=== PATIENT | male | born 1995 | race African-American/Black ===

== ENCOUNTER 2021-09-15 22:36 | Emergency (ER) | payer OTHER ==
[2021-09-15 22:45] VITALS: BP 111/77; PULSE 81; TEMP 98.1; BMI 28.2
[2021-09-15] MEDS ORDERED: LIDOCAINE 5% TOPICAL PATCH TP ONE (23:37)
[2021-09-15] MEDS ORDERED: ACETAMINOPHEN 500 MG TABLET (FP) PO ONE (23:37)
[2021-09-16] MEDS ORDERED: morphine CARPU-JECT 2 MG/1 ML DISP.SYRIN IVPUSH ONE ×2 (00:10→00:11)
[2021-09-16] MEDS ORDERED: ACETAMINOPHEN 325 MG TABLET (FP) ONE (00:52)
[2021-09-16] MEDS ORDERED: LIDOCAINE 5% TOPICAL PATCH ONE (00:52)
[2021-09-16 01:18] LABS: BASO % 1.1 % (0-2.0); EOS % 1.6 % (0-4.5); HEMATOCRIT 42.9 % (35.4-49); HEMOGLOBIN 14.7 GM/dL (11.7-16.9); LYMPH % 40.9 % (8-40); MCH 30.9 pg (25.7-33.7); MCHC 34.2 g/dl (32.0-35.9); MEAN CELL VOLUME 90.3 fl (80-96); MEAN PLT VOLUME 9.6 fl (7.5-11.1); MONO % 7.3 % (3.8-10.2); NEUT % 49.1 % (42.8-82.8); PLATELET COUNT 201 10^3/uL (134-434); RBC 4.75 M/mm3 (4.00-5.60); WHITE BLOOD COUNT 4.5 K/mm3 (4.0-10.0)
[2021-09-16 01:25] LABS: INR 1.13 (0.83-1.09)
[2021-09-16 01:32] LABS: EPI CELLS 2 /uL (0-25.1); HYALINE CASTS 1 /uL (0-3.1); PH,URINE 5.5 (5.0-8.0); URINE APPEARANCE CLEAR; URINE BACTERIA 6 /uL (0-1359); URINE BILIRUBIN NEGATIVE (NEGATIVE); URINE COLOR YELLOW; URINE GLUCOSE (UA) NEGATIVE (NEGATIVE); URINE KETONE TRACE (NEGATIVE); URINE LEUK ESTERASE NEGATIVE (NEGATIVE); URINE NITRITE NEGATIVE (NEGATIVE); URINE PROTEIN NEGATIVE (NEGATIVE); URINE RBC 16 /uL (0-23.9); URINE UROBILINOGEN 0.2 mg/dL (0.2-1.0); URINE WBC 8 /uL (0-25.8)
[2021-09-16 01:40] LABS: CALCIUM 8.8 mg/dL (8.5-10.1)
[2021-09-16 01:41] LABS: ALBUMIN 3.9 g/dl (3.4-5.0); BLOOD UREA NITROGEN 18.5 mg/dL (7-18)
[2021-09-16 01:44] LABS: CREATININE 1.1 mg/dL (0.55-1.3)
[2021-09-16 01:45] LABS: TOT PROT 7.5 g/dl (6.4-8.2)
[2021-09-16 01:46] LABS: BILIRUBIN,TOTAL 0.4 mg/dL (0.2-1)
[2021-09-16] MEDS ORDERED: morphine SULFATE 4 MG/ML VIAL ONE (02:07)
[2021-09-16] MEDS ORDERED: LIDOCAINE PATCH REMOVAL MC ONE (12:00)
== END 2021-09-16 02:53 | disposition home or self-care (01) ==
LOC: JER 22:36
PROC: 3E033NZ Introduction of Analgesics, Hypnotics, Sedatives into Peripheral Vein, Percutaneous Approach (ICD-10-PCS; principal; 2021-09-15)
PROC: 3E033NZ Introduction of Analgesics, Hypnotics, Sedatives into Peripheral Vein, Percutaneous Approach (ICD-10-PCS; 2021-09-15)
DX: S39.91XA Unspecified injury of abdomen, initial encounter (principal); W50.0XXA Accidental hit or strike by another person, initial encounter; Y93.61 Activity, american tackle football
CPT/HCPCS: 36415; 74177-TC; 80053; 81003; 85025; 85610; 85730; 99285-25; Q9967